=== PATIENT | male | born 1945 | race Caucasian/White ===

== ENCOUNTER 2024-11-06 10:34 | Inpatient (IN) ==
--- NOTE | 2024-10-06 10:36 | PAT Medication Instructions ---
Medication Instructions Date of Service October 06, 2024 Home Medications Vitamin B-12 1 tab PO QAM amitriptyline 25 mg tablet 25 mg PO HS apixaban 5 mg tablet (Eliquis) 5 mg PO BID aspirin 81 mg capsule 81 mg PO HS baclofen 10 mg tablet 10 mg PO DAILY PRN Pain ergocalciferol (vitamin D2) 1,250 mcg (50,000 unit) capsule (Vitamin D2) 1,250 mcg PO WK furosemide 20 mg tablet 20 mg PO QAM omeprazole 20 mg capsule,delayed release 20 mg PO HS oxycodone 10 mg tablet 10 mg PO BID PRN Pain rizatriptan 10 mg tablet (Maxalt) 0 mg PO .COMPLEX PRN prn rosuvastatin 20 mg tablet 20 mg PO QAM tamsulosin 0.4 mg capsule 0.4 mg PO HS topiramate 50 mg tablet (Topamax) 50 mg PO BID MEDICATION INSTRUCTIONS: ASK your prescriber and surgeon apixaban 5 mg tablet (Eliquis) 5 mg PO BID aspirin 81 mg capsule 81 mg PO HS DO NOT take the morning of surgery ergocalciferol (vitamin D2) 1,250 mcg (50,000 unit) capsule (Vitamin D2) 1,250 mcg PO WK furosemide 20 mg tablet 20 mg PO QAM Vitamin B-12 1 tab PO QAM Take morning of surgery With a small sip of water, OTHERWISE NOTHING TO EAT OR DRINK AFTER MIDNIGHT: topiramate 50 mg tablet (Topamax) 50 mg PO BID baclofen 10 mg tablet 10 mg PO DAILY PRN Pain oxycodone 10 mg tablet 10 mg PO BID PRN Pain rizatriptan 10 mg tablet (Maxalt) 0 mg PO .COMPLEX PRN prn rosuvastatin 20 mg tablet 20 mg PO QAM Take evening before surgery topiramate 50 mg tablet (Topamax) 50 mg PO BID omeprazole 20 mg capsule,delayed release 20 mg PO HS tamsulosin 0.4 mg capsule 0.4 mg PO HS amitriptyline 25 mg tablet 25 mg PO HS baclofen 10 mg tablet 10 mg PO DAILY PRN Pain oxycodone 10 mg tablet 10 mg PO BID PRN Pain rizatriptan 10 mg tablet (Maxalt) 0 mg PO .COMPLEX PRN prn Other Notes If you have any questions please call us at [phone] or [phone] or [phone] or [phone]
--- NOTE | 2024-10-12 13:07 | Anesthesiology Consultation ---
Date of Service October 12, 2024 Assessment & Plan (1) Encounter for pre-operative examination: Plan - awaiting surgeon ordered cardiology ([facility] 10/14/24) and medical clearances ([facility] 10/23/24). - anesthesia history: confusion/combativeness post-op related to PTSD especially if woken abruptly/startled. Patient requests waking him gently and giving him space, reminding him he is in the OR and just had surgery. - claustrophobia, patient requests keeping mask for oxygenation just above his face. - vasovagal syncope with IV placement/injections. - OR notified of above. - s/p right rotator cuff repair 08/2024 [facility]-patient denies any needed precautions overall/with positioning. Chart Review Chart Review: Pending: Refer to Additional Notes / Consult section and Patient seen in Pre Admission Testing Teaching & Discussion Pre-Anesthesia Teaching/Discussion Notes: Instructed NPO after midnight before surgery, except medications with 15 cc of water. Medication instructions provided according to the PAT guidelines. History Surgery Operation Date: 11/06/24 07:45 Proposed Procedures p L5-S1 Decompression and Fusion, Spinal Cord Monitoring - Frederick Mayberry, Height/Weight Height: 6 ft 5 in Weight: 107 kg Allergies Allergy/AdvReac Type Severity Reaction Status Date / Time naproxen Allergy Unknown Rash Verified 10/01/24 14:33 sacubitril [From Entresto] Allergy Unknown syncope Verified 10/01/24 14:38 valsartan [From Entresto] Allergy Unknown syncope Verified 10/01/24 14:38 Medications Home Medications Medication Instructions Recorded Confirmed Last Taken Vitamin B-12 1 tab PO QAM 10/01/24 10/01/24 Unknown amitriptyline 25 mg tablet 25 mg PO HS 10/01/24 10/01/24 Unknown apixaban 5 mg tablet (Eliquis) 5 mg PO BID 10/01/24 10/01/24 Unknown aspirin 81 mg capsule 81 mg PO HS 10/01/24 10/01/24 Unknown baclofen 10 mg tablet 10 mg PO DAILY PRN Pain 10/01/24 10/01/24 Unknown ergocalciferol (vitamin D2) 1,250 1,250 mcg PO WK 10/01/24 10/01/24 Unknown mcg (50,000 unit) capsule (Vitamin D2) furosemide 20 mg tablet 20 mg PO QAM 10/01/24 10/01/24 Unknown omeprazole 20 mg capsule,delayed 20 mg PO HS 10/01/24 10/01/24 Unknown release oxycodone 10 mg tablet 10 mg PO BID PRN Pain 10/01/24 10/01/24 Unknown rizatriptan 10 mg tablet (Maxalt) 0 mg PO .COMPLEX PRN prn 10/01/24 10/01/24 Unknown rosuvastatin 20 mg tablet 20 mg PO QAM 10/01/24 10/01/24 Unknown tamsulosin 0.4 mg capsule 0.4 mg PO HS 10/01/24 10/01/24 Unknown topiramate 50 mg tablet (Topamax) 50 mg PO BID 10/01/24 10/01/24 Unknown Past Medical History Medical History (Updated 10/12/24 @ 15:30 by Love Mo PA-C) Arthritis Atrial fibrillation on Eliquis daily-s/p ablation 2022- [facility] CAD (coronary artery disease) mild non-obstructive Claustrophobia does better with mask just slightly above face Congestive heart failure EF 55-60% Dyslipidemia History of COVID-19 (~04/2024) symptoms resolved Hypertension controlled, stable per pt Migraines Peripheral neuropathy feet PTSD (post-traumatic stress disorder) needs space/gently woken up from surgery Vasovagal syncope with IV placement/injections-states no issues with blood draw Vertigo chronic Patient denies h/o stroke, seizures, heart attack, DM, blood clots/DVTs or blood transfusions. Exercise / Class Metabolic Activity II 4-5 Yardwork/Stairs/Walk up hill (denies chest discomfort or shortness of breath with one flight of stairs) Past Surgical History Surgical History History of cardiac radiofrequency ablation (~2022) History of shoulder surgery right 08/11/24- rotator cuff repair, [facility] Hx of cardiac catheterization (~2021) no stents [facility] [place] Hx of cholecystectomy Hx of colonoscopy Hx of total knee replacement right Past Anesthesia History No Family Hx of Anesthesia Complications and Other (confusion/combativeness waking due to PTSD-states needs woken up gently; sore throat with previous intubations) History of PONV No Hx of PONV and No Hx of Motion Sickness Social History Smoking Status: Never smoker Do You Dip or Chew Tobacco: No Hx Alcohol Use: Yes alcohol intake frequency: a few times a week Hx Substance Use: No substance use type: does not use Review of Systems Patient denies chest pain, shortness of breath, dyspnea on exertion, snoring, witnessed apneas, reflux, fever, chills, cough, wheezing, or palpitations. Physical Exam Vital Signs Vitals BP 161/94 (Pt notes stress/anxiety) P 85 TEMP 98.5 SP02 94% on RA RESP 19 Physical Patient resting comfortably in chair in no acute distress, alert and oriented, responding appropriately throughout visit Full cervical extension range of motion without pain TMD 3.5 finger breadths Mallampati Score 3 Dentition: upper plate, implant and cap/crown; denies chipped or loose teeth, or bridges Lungs: normal respiratory effort. Good air movement, clear throughout to auscultation, no adventitious breath sounds Cardiac: regular rate and rhythm, no murmurs noted Carotid arteries: negative bruit bilat Lab Results Anesthesia Preop Results Results Anesthesia Widget: WBC 5.15 K/ul (4.8-10.8) 10/12/24 Hgb 15.0 g/dl (14.0-18.0) 10/12/24 Hct 44.2 % (42.0-52.0) 10/12/24 Plt 183 K/uL (130-400) 10/12/24 Na 139 mmol/L (136-145) 10/12/24 K 3.9 mmol/L (3.5-5.1) 10/12/24 Cl 107 mmol/L (98-107) 10/12/24 CO2 25 mmol/L (21-32) 10/12/24 BUN 10 mg/dl (6-23) 10/12/24 Creat 0.89 mg/dl (0.6-1.4) 10/12/24 Glucose Level 103 mg/dl (70-99(Fasting)) H 10/12/24 PT 10.8 Seconds (9.0-12.0) 10/12/24 PTT 29 Seconds (21-31) 10/12/24 INR 1.0 (0.9-1.1) 10/12/24 Urine Color Yellow 10/12/24 Urine Appearance Clear (Clear) 10/12/24 Urine pH 5.0 (4.5-7.5) 10/12/24 Urine Specific [place] 1.009 (1.000-1.030) 10/12/24 Urine Protein Negative (Negative) 10/12/24 Urine Glucose (UA) Negative (Negative) 10/12/24 Urine Ketones Negative (Negative) 10/12/24 Urine Blood Negative (Negative) 10/12/24 Urine Nitrite Negative (Negative) 10/12/24 Urine Bilirubin Negative (Negative) 10/12/24 Urine Urobilinogen Negative (Negative) 10/12/24 Urine Leukocyte Esterase Negative (Negative) 10/12/24 Blood Type AB Negative 10/12/24 Antibody Screen NEGATIVE 10/12/24 Testing Electrocardiogram Date: 10/12/24 NSR, rate 76 bpm PACs Left axis deviation Incomplete RBBB Nonspecific T wave abnormality Chest X-Ray Date: 10/12/24 No acute cardiopulmonary findings. Echocardiogram Date: 10/02/23 EF 60% Borderline cLVH Mildly dilated LA Mild mitral regurgitation Mild aortic insufficiency Mild tricuspid regurgitation Cardiac Catheterization Date: 12/27/21 Left main: mild luminal irregularities up to 10% LAD: 20% luminal changes along the length of the LAD and diagonal vessel Cx: 30% disease in proximal vessel in the AV groove RCA: 40% proximal disease Mild nonobstructive CAD
[~2024-11-06 10:34] MED LIST: ALBUMIN HUMAN 5% 12.5 GM/250 ML VIAL IV ONE; CeleBREX 200 MG CAP PO SCH; GLYCOPYRROLATE 0.2 MG/ML VIAL ONE; KETAMINE HCL 10MG/ML SYR ONE; fentaNYL citrate PF 100 MCG/2 ML VIAL ONE
[2024-11-06] MEDS: ACETAMINOPHEN 500 MG TAB PO SCH (10:55)
[2024-11-06] MEDS: GABAPENTIN 300 MG CAP PO SCH (10:55)
[2024-11-06] MEDS: LR 15ML/HR IV SCH (10:55)
[2024-11-06] MEDS: LR 60ML/HR IV SCH (10:56)
[2024-11-06] MEDS ORDERED: PROMETHAZINE HCL 6.25 MG in SODIUM CHLORIDE 0.9% 50 ML IV PRN (11:23)
[2024-11-06] MEDS ORDERED: ePHEDrine sulfate 50 MG/ML AMP IV PRN (11:23)
[2024-11-06] MEDS ORDERED: ATROPINE SULFATE 0.1 MG/ML 10ML SYR IV PRN (11:23)
--- NOTE | 2024-11-06 12:26 | History & Physical Bridge Note ---
Date of Service November 06, 2024 History & Physical Bridge Note I have examined the patient, reviewed the History & Physical and in the interval since the performance of the History & Physical I have noted the following changes of clinical significance: no changes noted
--- NOTE | 2024-11-06 12:29 | History & Physical Report ---
Date of Service November 06, 2024 Assessment & Plan (1) Multilevel lumbosacral spondylosis with radiculopathy: Plan: L2-S1 decompression and fusion History of Present Illness Chief Complaint: Back and bilateral leg pain Primary Care Provider: NO PCP This is a 79-year-old male who presents with chronic persistent back and leg pain after failing course of nonoperative care is here for surgical intervention. Allergies Allergy/AdvReac Type Severity Reaction Status Date / Time naproxen Allergy Unknown Rash Verified 11/06/24 10:39 sacubitril [From Entresto] Allergy Unknown syncope Verified 11/06/24 10:39 valsartan [From Entresto] Allergy Unknown syncope Verified 11/06/24 10:39 Home Medications Medication Instructions Recorded Confirmed Type Vitamin B-12 1 tab PO QAM 10/01/24 11/06/24 History amitriptyline 25 mg tablet 25 mg PO HS 10/01/24 11/06/24 History apixaban 5 mg tablet (Eliquis) 5 mg PO BID 10/01/24 11/06/24 History aspirin 81 mg capsule 81 mg PO HS 10/01/24 11/06/24 History baclofen 10 mg tablet 10 mg PO DAILY PRN Pain 10/01/24 11/06/24 History ergocalciferol (vitamin D2) 1,250 1,250 mcg PO WK 10/01/24 11/06/24 History mcg (50,000 unit) capsule (Vitamin D2) furosemide 20 mg tablet 20 mg PO QAM 10/01/24 11/06/24 History omeprazole 20 mg capsule,delayed 20 mg PO HS 10/01/24 11/06/24 History release oxycodone 10 mg tablet 10 mg PO BID PRN Pain 10/01/24 11/06/24 History rizatriptan 10 mg tablet (Maxalt) 0 mg PO .COMPLEX PRN prn 10/01/24 11/06/24 History rosuvastatin 20 mg tablet 20 mg PO QAM 10/01/24 11/06/24 History tamsulosin 0.4 mg capsule 0.4 mg PO HS 10/01/24 11/06/24 History topiramate 50 mg tablet (Topamax) 50 mg PO BID 10/01/24 11/06/24 History Past Med/Surg History Problem List (Updated 11/06/24 @ 12:29 by Frederick Mayberry DO) Multilevel lumbosacral spondylosis with radiculopathy Encounter for pre-operative examination Medical History (Updated 11/06/24 @ 12:29 by Frederick Mayberry DO) Hypertension controlled, stable per pt Claustrophobia does better with mask just slightly above face Vasovagal syncope with IV placement/injections-states no issues with blood draw Vertigo chronic CAD (coronary artery disease) mild non-obstructive Congestive heart failure EF 55-60% Arthritis Dyslipidemia History of COVID-19 (~04/2024) symptoms resolved PTSD (post-traumatic stress disorder) needs space/gently woken up from surgery Peripheral neuropathy feet Migraines Atrial fibrillation on Eliquis daily-s/p ablation 2022- [facility] [place]- Shahriar Ramirez Surgical History History of shoulder surgery right 08/11/24- rotator cuff repair, [place] [facility] Hx of cardiac catheterization (~2021) no stents [facility] [place] History of cardiac radiofrequency ablation (~2022) Hx of total knee replacement right Hx of colonoscopy Hx of cholecystectomy Social History Smoking Status: Never smoker Second Hand Exposure: No; Do You Dip or Chew Tobacco: No; Tobacco Cessation Education Requested by Patient: No Hx Alcohol Use: Yes Hx Substance Use: No Preferred Language: [place]ican Communication Ability: Effective Locker Room Manager Required: No Beliefs That Will Affect Care: None Current Living Situation: Spouse Other Information That Helps Us Care for You: No Feels Safe at Home: Yes Safety Concerns: Feels Safe At This Time Assistive Devices: Denture - Upper, Glasses and Hearing Aid - Bilateral Assistive Devices Comment: UPPER PARTIAL Physical Exam Physical Exam: Patient is alert and oriented Heart regular rhythm lungs clear Results & Data Results & Data Vital Signs (Past 12 Hours) Vital Signs Temp Pulse Resp BP Pulse Ox O2 Del Method 11/06/24 10:44 36.9 C 82 20 162/91 H 97 Room Air
[2024-11-06] MEDS ORDERED: MIDAZOLAM HCL 1 MG/ML 2ML VIAL ONE (12:53)
[2024-11-06] MEDS: ceFAZolin 2000MG 2,000 MG/15 ML SYR IV SCH ×2 (13:02→21:21)
[2024-11-06] MEDS ORDERED: HYDROmorphone INJ 2 MG/ML SYR/VIAL ONE (13:37)
[2024-11-06] MEDS: BUPIVACAINE/EPINEPHRINE 0.25% 1:200,000 30 ML VIAL ONE (13:44)
[2024-11-06] MEDS: ceFAZolin 330 MG/ML 1 GM VIAL ONE (13:44)
[2024-11-06] MEDS ORDERED: PROPOFOL IV EMULSION 10 MG/ML 20 ML VIAL IV ONE (14:13)
[2024-11-06] MEDS ORDERED: LIDOCAINE 2% 2 ML VIAL/AMP(20MG/ML) INFIL ONE (14:13)
[2024-11-06] MEDS ORDERED: ROCURONIUM BROMIDE 10 MG/ML 5 ML VIAL IV ONE (14:13)
[2024-11-06] MEDS ORDERED: DEXAMETHASONE SOD INJ 4 MG/ML VIAL ONE (14:13)
[2024-11-06] MEDS ORDERED: ONDANSETRON INJ 2 MG/ML 2 ML VIAL ONE (14:13)
[2024-11-06] MEDS ORDERED: ePHEDrine sulfate 50 MG/5 ML SYR ONE (14:38)
[2024-11-06] MEDS: FLOSEAL HEMOSTATIC MATRIX 10ML TOP ONE (15:15)
[2024-11-06] MEDS ORDERED: SUGAMMADEX SODIUM 200 MG/2 ML VIAL IV ONE (15:20)
--- NOTE | 2024-11-06 15:30 | Operative Report ---
Post Operative Report Pre & Post Diagnosis Operation Date: 11/06/24 11:55 Pre-Op Diagnosis: #1 multilevel lumbar sacral spondylosis with radiculopathy #2 lumbar spinal stenosis Post-Op Diagnosis: Same I identified the patient and participated in the time-out.: Yes Procedure Operation Date: 11/06/24 11:55 Actual Procedures #1 lumbar decompression with bilateral mucosectomy and foraminotomies L2-L3, L3- L4, L4-5 and L5-S1. #2 posterior spinal fusion L2-S1. #3 placement posterior segmental instrumentation L2-S1 using Dewitt. #4 interbody fusion L5-S1. #[address] Place of Spiriva 10 x 26 mm x 2 to L5-S1. #6 placement locally harvested morselized autograft posterior gutters. #7 placement of infuse collagen sponge combined with core os in the posterior lateral gutters and os design in the interbody space. #8 placement of versa wrap over the exposed dura. Surgeon Frederick Mayberry, Movement Assembler Lonny Aguilar Estimated Blood Loss 500 Findings Consistent with Post-Op Diagnosis Specimens None Indications This is a 79-year-old male who presents manage diagnosis after failing course of nonoperative care is here for surgical invention. Description of Procedure Patient was met with identified informed consent obtained. Patient was then taken to the operative suite underwent patient placed in a prone position on the Vladislav table on top of the Manjinder frame. All bony promises well-padded eyes inspected to ensure no external pressure placed upon them. This point the lumb ar spine was prepped and draped in normal sterile fashion. Sharp dissection with the assistance of Bovie cautery from down to and exposing the lamina and transverse processes of L2-L3 L4-5 and the sacral ala bilaterally. From [place] cephalad fashion complete laminectomy of L5 L4 L3 and L2 was performed including bilateral medial facetectomies and foraminotomies addressing severe neural compression. Pedicle screws were then placed at L2 L3-L4-L5 and S1 levels bilaterally with assistance of fluoroscopy and appropriate sized rods placed. Bilateral transforaminal approach and right a discectomy of L5-S1 was performed and placed according to subcortical bleeding bone and a 10 x 26 mm spiral cage filled with loss + bone graft tapped in position. Then received to the left transforaminal region at L5-S1. Again discectomy performed. Endplates coated to subcortical bone and a second 10 x 26 mm spiral cage filled with loss design bone graft tapped in position. The rods were then locked in final position bilaterally. The transverse processes of L2 L3-L4-L5 and sacral ala bridges of cortical bleeding bone. Infuse collagen sponge combined with core os and local autograft placed in the posterior gutters. 15 round BRIANNA drain inserted. First wrap placed over the exposed dura. Incision was then closed with 1 Vicryl the fascia 2-0 Vicryl subcutaneously and 4 Monocryl for final skin closure. Steri- Strips sterile dressing placed. Patient awakened taken to PACU stable condition. Please note spinal cord monitoring was utilized at the procedure no changes noted. Lastly Lonny Aguilar was present at the entire procedure informed patient positioning complex portion of the surgery and final skin closure. I attest to the content of the Intraoperative Record and any orders documented therein. Any exceptions are noted below.
--- NOTE | 2024-11-06 15:39 | Fluoroscopy Report ---
FL lumbar spine 2-3V CLINICAL HISTORY: L2-S1 DECOMP/FUSION COMPARISON STUDY: None FLUOROSCOPY TIME: 31.5 seconds FLUOROSCOPY IMAGES: 3 EXPOSURE DOSE: 19.89 mGy FINDINGS: Multilevel interbody cassie and screw fusion hardware of the lumbar spine with single level di scectomy. Exact number is not definitive based on magnification. Note that the images were submitted following completion of the surgery. No unexpected opaque foreign bodies. IMPRESSION: Fluoroscopic assistance as above. ACT 112: Negative or not required by law. Electronically signed by: Jack Fuchs M.D. 11/06/2024 3:38 PM
[2024-11-06] MEDS: HYDROmorphone INJ 2 MG/ML SYR/VIAL IV PRN (16:06)
--- NOTE | 2024-11-06 16:51 | Anesthesiology Progress Note ---
Date of Service November 06, 2024 Anesthesia Post Procedure Vital Signs Vital Signs: Temp Pulse Pulse Resp BP Pulse Ox O2 Del Method 11/06/24 16:45 36.4 C L 79 15 132/79 94 Nasal Cannula 11/06/24 16:35 78 15 119/69 94 Nasal Cannula 11/06/24 16:25 77 15 103/73 94 Nasal Cannula 11/06/24 16:15 73 17 133/74 96 Nasal Cannula 11/06/24 16:05 76 17 124/68 95 Nasal Cannula 11/06/24 15:55 36.4 C L 77 17 106/71 97 Nasal Cannula 11/06/24 10:44 36.9 C 82 20 162/91 H 97 Room Air O2 Flow Rate 11/06/24 16:45 4 11/06/24 16:35 4 11/06/24 16:25 4 11/06/24 16:15 4 11/06/24 16:05 4 11/06/24 15:55 4 11/06/24 10:44 Transfer of Care Handoff Completed per policy Notes Mental Status: alert / awake / arousable Patient Amnestic to Procedure: Yes Nausea / Vomiting: adequately controlled Pain: adequately controlled Airway Patency, RR, SpO2: stable & adequate BP & HR: stable & adequate Hydration State: stable & adequate Anesthetic Complications: no major complications apparent and Pt Satisfied with anesthetic care
[2024-11-06] MEDS ORDERED: METOCLOPRAMIDE HCL INJ 5 MG/ML 2 ML VIAL IV PRN (17:22)
[2024-11-06] MEDS ORDERED: DO NOT ADMINISTER FLU VACCINE PRN (17:22)
[2024-11-06] MEDS ORDERED: HYDROmorphone INJ 0.5 MG/0.5 ML SYR IV PRN (17:22)
[2024-11-06] MEDS ORDERED: BACLOFEN 10 MG TAB PO PRN (17:22)
[2024-11-06] MEDS ORDERED: SOD PHOSPHATE/SOD BIPHOSPHATE ENEMA 132 ML BTL PR PRN (17:22)
[2024-11-06] MEDS ORDERED: FAMOTIDINE 20 MG TAB PO PRN (17:22)
[2024-11-06] MEDS ORDERED: ACETAMINOPHEN 1,000 MG/100 ML VIAL IV PRN (17:22)
[2024-11-06] MEDS ORDERED: diphenhydrAMINE Capsule 25 MG CAP PO PRN (17:22)
[2024-11-06] MEDS ORDERED: ONDANSETRON 4 MG OD TAB PO PRN (17:22)
[2024-11-06] MEDS ORDERED: PROMETHAZINE 12.5 MG/50.5 ML BAG IV PRN (17:22)
[2024-11-06] MEDS ORDERED: RIZATRIPTAN BENZOATE 10 MG TAB PO PRN (17:22)
[2024-11-06] MEDS ORDERED: bisacodyL 10 MG SUPP PR PRN (17:22)
[2024-11-06] MEDS ORDERED: LORazepam 0.5 MG TAB PO PRN (17:22)
[2024-11-06] MEDS ORDERED: NALOXONE HCL 0.4 MG/1 ML VIAL/CARP IV PRN (17:22)
[2024-11-06] MEDS ORDERED: DO NOT ADMINISTER PNEUMOCOCCAL VACCINE PRN (17:22)
[2024-11-06] MEDS ORDERED: LORazepam 2 MG/1 ML VIAL IV PRN (17:22)
[2024-11-06] MEDS ORDERED: ALUMINUM/MAGNESIUM SUSP 30 ML UDC PO PRN (17:22)
[2024-11-06] MEDS ORDERED: ONDANSETRON INJ 2 MG/ML 2 ML VIAL IV PRN (17:22)
[2024-11-06] MEDS ORDERED: hydrOXYzine HCl 25 MG TAB PO PRN (17:22)
[2024-11-06] MEDS: ALLERGY Noted to ORDERED Medication SCH (18:26)
--- OUTSIDE RECORDS SUMMARY | 2024-11-06 19:48 | External Medical Summary | Summary of Care ---
Author Name Unknown Organization [facility] Address [address] [place] [address] Phone [phone] Care Team Providers Care International Student Advisor Name Role Phone Shahriar Renner PA-C Primary Care Provid er Reason for Referral * Evaluate & Treat - Unlimited Visits (Within 10 days (routine)) - Authorized Specialty Diagnoses / Procedures Referred By Karolina nunez Referred To Contact Ophthalmology Diagnoses Macular pucker, right eye [facility] Renner [facility] [id number] [facility] [id number] Referral ID Status Reason Start Date Expiration Date Visits Requested Visits Authorized [id number] Authorized Specialty Services Required 4 08/27/[phone] Question Answer Referral Priority Within 10 days (routine) Where should this appointment be scheduled? [facility] Referring for: Ophthalmology Conditions Ophthalmology Conditions Other Ophthalmology (comment) Comments Puckering of macula, rt eye Encounter Details Date Type Department Care Team (Late st Contact Info) Description 06/08/2024 Orders Only Access Center, [place] [facility] [address] [place] [address] Ext *DO NOT REMOVE THIS DEPARTMENT* [place] [id number] Request, External Referral Macular pucker, right eye* Allergies Active Allergy Reactions Criticality Noted Date Comments Sacubitril-Valsartan 06/07/2023 Naproxen 04/20/2015 documented as of this encounter (statuses as of 06/08/2024) Medications Medication Sig Dispensed Refills Start Date End Date Status Cyanocobalamin (VITAMIN B-12) 2500 MCG Sublingual Tablet 1tab daily Act yumiko amitriptyline (ELAVIL) 25 MG Tablet 1 tab in the evening Active Rizatriptan Benzoate (MAXALT) 10 MG Tablet 1 Tablet as needed. 1 tab daily for migraines Active Oxycodone-Acetaminoph en (PERCOCET) 10-325 MG per tablet As needed Active baclofen (LIORESAL) 10 MG Tablet Take 1 Tablet by mouth as needed. Active ARTIFICIAL TEARS 0.1-0.3 % ophthalmic solution Instill 1 Drop into both eyes daily. Active hydroCHLOROthiazide (HYDRODIURIL) 25 MG Tablet daily. 1/2 daily 06/15/2019 Active NARCAN 4 MG/0.1ML LIQD 07/01/2019 Active omeprazole (PRILOSEC) 20 MG CPDR 05/23/2019 Active ondansetron (ZOFRAN) 4 MG Tablet as needed. 0 06/19/2019 Active topiramate (TOPAMAX) 25 MG TABS 2 times a day. 0 06/19/2019 Active Ergocalciferol 1.25 MG (16294 UT) Oral Capsule (VITAMIN D2(DRISDOL)) Take 1 Capsule by mouth once a week. Active Eliquis 5 MG Oral Tablet 04/20/2022 Active dilTIAZem HCl ER Beads 120 MG Oral Capsule Extended Release 24 Hour 2 times a day . 03/20/2022 Acti ve Furosemide 20 MG Oral Tablet (Lasix) 04/25/2022 Active Rosuvastatin Calcium 40 MG Oral Tablet (Crestor) 05/03/2022 Active Tamsulosin HCl 0.4 MG Oral Capsule (Flomax) 04/25/2022 Act yumiko Aspirin 81 MG Oral Capsule Take by mouth . Active Sildenafil Citrate 100 MG Oral Tablet 1 Tablet. 11/14/2022 Active documented as of this encounter (statuses as of 06/08/2024) Active Problems Problem Noted Date Diagnosed Date Epiretinal membrane (ERM) of left eye 06/23/2020 Retinal detachment with retinal defect, right Vitreous degeneration, left 04/21/2015 Retinal edema 04/21/2015 documented as of this encounter (statuses as of 06/08/2024) Immunizations Name Administration Dates Next Due Seasonal Influenza Virus Vac cine, Unspecified Formulation 04/20/2020 documented as of this encounter Social History Tobacco Use Types Packs/Day Years Used Date Smoking Tobacco: Never Smokeless Tobacco: Never Alcohol Use Standard Drinks/Week Comments Yes 0 (1 standard drink = 0.6 oz pur e alcohol) 2-3 beers daily Utilities Answer Date Recorded Do you have trouble paying y our heating, water, or electric bill? (Adult - for ages 18 years and over) Not on file 01/21/2024 Is your family able to pay t he heat, water, or electric bill? (Household - for ages 0-17 years) Not on file 01/21/2024 Does your family have access to good internet? (Household - for ages 0-17 years) Not on file 01/21/2024 Social Connections Answer Date Recorded How often do you feel lonely or isolated from those around you? (Adult - for ages 18 years and over) Not on file 01/21/2024 Sex and Gender Information Value Date Recorded Sex Assigned at Not on file Gender Identity Not on file Sexual Orientation Not on file Job Start Date Occupation Industry Not on file Not on file Not on file documented as of this encounter Plan of Treatment Upcoming Encounters Date Type Department Care Team (Late st Contact Info) Description 08/27/2024 1:00 PM EST Office Visit Ophthalmology, [facility] [address] [place] [address] [place], [address] [place] [address] Roly Nurse Ophthalmology [address] [place] [address] Roly Lead Business Systems Analyst [address] [place] [address] Scheduled Referrals Name Type Priority Associated Diagnoses Orde r Schedule ADULT/PEDS OPHTHALMOLOGY/OPTOM ETRY REFERRAL OP Referral Within 10 days (routine) Macular pucker, right eye Ordered: 06/08/2024 Health Maintenance Due Date Last Done Comments Depression Screening 1957 Hepatitis C Screening 1963 DTap/Tdap Vaccines (1 - Tdap) 1964 Pneumococcal Vaccine: 65+ Years (2 of 2 - PPSV23 or PCV20) 08/11/2016 08/11/2015 Zoster Vaccines (3 of 3) 05/26/2019 03/31/2019, 01/03 COVID-19 Vaccine (1 - 2023- season) 2024 Influenza Vaccine (FLU shot) (#1) 2024 04/20/2020, 05/06/2018, 05/29/2017, Additional history exists HPV (Gardasil) Vaccine Aged Out No lo nger eligible based on patient's age to complete this topic Hepatitis B Vaccine Aged Out No longe r eligible based on patient's age to complete this topic MENINGOCOCCAL (MENACTRA/MENVEO) Aged Out No longer eligible based on patient's age to complete this topic documented as of this encounter Medical Devices Not on filedocumented as of this encounter Visit Diagnoses Diagnosis Macular pucker, right eye- Primary Macular puckering of retina documented in this encounter Care Teams International Student Advisor Relationship Specialty Start Date End Date Shahriar Renner PA-C [address] [facility] [place] [address] PCP - General Physician Machine Group Leader 04/01/24 documented as of this encounter
--- OUTSIDE RECORDS SUMMARY | 2024-11-06 19:48 | External Medical Summary | Summary of Care ---
Author Name Unknown Organization [facility] Address [address] [facility] [place] [address] Phone [phone] Care Team Providers Care Saw Repairer Name Role Phone Shahriar Renner PA-C Primary Care Provid er Reason for Visit * Reason Comments Follow Up 1.2 Year follow up f or retinal detachment w/retinal defect OD, s/p repair 2008, retinal edema OD, ERM OS and vitreous degeneration OS. * Evaluate & Treat - Unlimited Visits (Within 10 days (routine)) - Authorized Specialty Diagnoses / Procedures Referred By Karolina nunez Referred To Contact Ophthalmology Diagnoses Macular pucker, right eye [facility] Ren[facility] [address] [facility] [place] [address] Phone: tel: fax: Referral ID Status Reason Start Date Expiration Date Visits Requested Visits Authorized [id number] Authorized Specialty Services Required 4 08/27/2025 [id number] Encounter Details Date Type Department Care Team (Late st Contact Info) Description 08/27/2024 1:00 PM EST Office Visit Ophthalmology, [facility] [address] [place] [address] Melchor Hassan DO [address] [place] [address] Roly Nurse Ophthalmology [address] [place] [address] Royl Able Bodied Seaman [address] [place] [address] Retinal detachment with retinal defect, right*; Retinal edema; Epiretinal membrane (ERM) of left eye; Vitreous degeneration, left Allergies Active Allergy Reactions Criticality Noted Date Comments Sacubitril-Valsartan 06/07/2023 Naproxen 04/20/2015 documented as of this encounter (statuses as of 08/27/2024) Medications Cyanocobalamin (VITAMIN B-12) 2500 MCG Sublingual Tablet 1tab daily Active amitriptyline (ELAVIL) 25 MG Tablet 1 tab in the evening Active Rizatriptan Benzoate (MAXALT) 10 MG Tablet 1 Tablet as needed. 1 tab daily for migraines Active Oxycodone-Aceta minophen (PERCOCET) 10-325 MG per tablet As needed Active baclofen (LIORESAL) 10 MG Tablet Take 1 Tablet by mouth as needed. Active ARTIFICIAL TEARS 0.1-0.3 % ophthalmic solution Instill 1 Drop into both eyes in the morning. Active hydroCHLOROthia zide (HYDRODIURIL) 25 MG Tablet daily. 1/2 daily 9 Active NARCAN 4 MG/0.1ML LIQD 9 Active omeprazole (PRILOSEC) 20 MG CPDR 9 Active ondansetron (ZOFRAN) 4 MG Tablet as needed. 0 9 Active topiramate (TOPAMAX) 25 MG TABS 2 times a day. 0 9 Active Ergocalciferol 1.25 MG (48230 UT) Oral Capsule (VITAMIN D2(DRISDOL)) Take 1 Capsule by mouth once a week. Active Eliquis 5 MG Oral Tablet 2 Active dilTIAZem HCl ER Beads 120 MG Oral Capsule Extended Release 24 Hour 2 times a day . 2 Active Furosemide 20 MG Oral Tablet (Lasix) 2 Active Rosuvastatin Calcium 40 MG Oral Tablet (Crestor) 2 Active Tamsulosin HCl 0.4 MG Oral Capsule (Flomax) 2 Active Aspirin 81 MG Oral Capsule Take by mouth . Active Sildenafil Citrate 100 MG Oral Tablet 1 Tablet. 3 Active documented as of this encounter (statuses as of 08/27/2024) Active Problems Problem Noted Date Diagnosed Date Epiretinal membrane (ERM) of left eye 06/23/2020 Retinal detachment with retinal defect, right Vitreous degeneration, left 04/21/2015 Retinal edema 04/21/2015 documented as of this encounter (statuses as of 08/27/2024) Immunizations Name Administration Dates Next Due Influenza, Whole Virus 07/23/2001 Pneumococcal Conjugate Vacc, 13 Valent (Prevnar) 08/11/2015 RSV Vac., Recomb, Adjuvant, PF,0.5 Ml (Arexvy) 06/05/2023 Seasonal Influenza Vac., MDV , IM, 0.5 mL (Fluzone) 05/06/2018,05/29/2017,04/28/2016,2014 Seasonal Influenza Virus Vac cine, Unspecified Formulation 04/20/2020 Seasonal Influenza, Trivalen t, (IIV3), PF, (Fluzone) 06/25/2024 TDAP (age 10 and older)(Boostrix) 11/06/2013 Varicella Zoster Vaccine (Adult) 01/13/2009 Zoster Vaccine Recombinant (Shingrix) 03/31/2019 documented as of this encounter Social History [...] Recorded Sex Assigned at Not on file Legal Sex Male 6:33 AM EST Gender Identity Not on file Sexual Orientation Not on file Occupation Industry Job Start Date Job End Date [employer]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 06/07/2023 (in office), Visit date not found (telemedicine) Has your medical history changed since your last office visit? Yes, I had shoulder surgery to the right shoulder on 08/11/24. He currently states "I just broke my eye glasses and am wearing an older pair. I have noticed that when I read or even looking out at a distance my vision blurs up until I blink a few times then it comes into focus." Are you diabetic? NO. Are you being treated for macular degeneration? NO. Current Ophthalmic Medications: Artificial tears in both eyes as needed. Nursing notes reviewed. Base Eye Exam Visual Acuity (Snellen - Linear) Right Left Dist cc 20/80-1+2 20/20-1 Dist ph cc 20/70 Correction: Glasses Tonometry (Tonopen, 1:06 PM) Right Left Pressure 16 16 Pupils Dark React APD Right 2 Minimal None Left 2 Minimal None Visual Hill (Counting fingers) Right Left Full Restrictions Partial outer superior temporal, inferior nasal deficiencies Extraocular Movement Right Left Full Full Neuro/Psych Oriented x3: Yes Mood/Affect: Normal Dilation Both eyes: 0.5% Proparacaine, 1.0% Mydriacyl, 2.5% Phenylephrine @ 1:05 PM Patient cautioned that effects of dilation may last 2-7 hours dependant upon individual reaction. It was discussed that driving while dilated is not recommended. Slit Lamp and Fundus Exam External Exam Right Left External Normal Normal Slit Lamp Exam Right Left Lids/Lashes Normal Normal Conjunctiva/Sclera White and quiet White and quiet Cornea Clear Clear Anterior Chamber Deep and quiet Deep and quiet Iris Dilated, normal Dilated, normal, TI defect infero temporal Lens Sulcus IOL superior edge of the optic visible through dilated pupil, open capsule Posterior chamber intraocular lens, clear capsule Anterior Vitreous Vitrectomized and clear Posterior vitreous detachment, Vines ring and vitreous condensation with haze to the posterior hyaloid. Fundus Exam Right Left Disc Normal Normal C/D Ratio 0.5 0.3 Macula No Central edema. No epiretinal membrane. Glistening from fine ERM superior. No edema. Vessels Tortuous. Normal Periphery Stable detachment repair with healed retinopexy superior and temporal. No recurrent detachment. No hole, tear or detachment. Pigmentary changes temporal. OCT: OD: central thickness 363 microns. Scan very similar to the previous from 06/07/2023. Stable reduction in central edema. No Epiretinal membrane. Postsurgical appearance. OS: central thickness 306 microns. Scan very similar to the previous from 06/07/2023. No edema. Very fine Epiretinal membrane superior as before. Today's imaging was reviewed with the patient. DIAGNOSIS: (H33.001) Retinal detachment with retinal defect, right, s/p repair (H35.81) Retinal edema (H35.372) Epiretinal membrane (ERM) of left eye (H43.812) Vitreous degeneration, left COMMENTS: Comments today are very similar to our last visit 1 year ago, 06/07/2023 OD: The retinal exam in the right eye demonstrates mild residual central edema on OCT. Subtle decrease in the residual central edema. Vision is stable. The peripheral exam is stable with respect to the retinal detachment repair. OS: Evaluation of the left eye is entirely stable as well. Stable macula and periphery. The posterior capsule remains clear. There is a very fine epiretinal membrane noted clinically and on OCT. Thisis visually insignificant. Multiple floaters in vitreous condensations secondary to vitreous degeneration. I will continue to monitor on an annual basis. Mr. Plaza understands I can evaluate sooner if there is worsening of vision in the interval. FOLLOW UP: Follow Up: Return in about 1 year (around 08/27/2025) for Dilate OU, OCT OU. | For: Dilate OU, OCT OU Melchor Hassan D.O. 08/27/2024 1:33 PM Ophthalmology, [place] [address] [address] [place] [address] documented in this encounter Nursing Notes * Liz Liu COA - 08/27/2024 12:56 PM EST Layo Plaza is a 78 year old male who presents for Chief Complaint Patient presents with Follow Up 1.2 Year follow up for retinal detachment w/retinal defect OD, s/p repair 2008, retinal edema OD, ERM OS and vitreous degeneration OS. 06/07/2023 (in office), Visit date not found (telemedicine) Has your medical history changed since your last office visit? Yes, I had shoulder surgery to the right shoulder on 08/11/24. He currently states "I just broke my eye glasses and am wearing an older pair. I have noticed that when I read or even looking out at a distance my vision blurs up until I blink a few times then it comes into focus." Are you diabetic? NO. Are you being treated for macular degeneration? NO. Current Ophthalmic Medications: Artificial tears in both eyes as needed. Vision, IOP, confrontation hill, motility, pupil check and dilation per physician protocol can befound on the Ophth exam. * Beena Vaughan TECH - 08/27/2024 12:49 PM EST OCT image(s) of both eyes acquired and filed/scanned into chart. documented in this encounter Plan of Treatment Scheduled Referrals Name Type Priority Associated Diagnoses Orde r Schedule ADULT/PEDS OPHTHALMOLOGY/OPTOM ETRY REFERRAL OP Referral Within 10 days (routine) Macular pucker, right eye Ordered: 06/08/2024 Health Maintenance Due Date Last Done Comments Depression Screening 1957 Hepatitis C Screening 1963 Pneumococcal Vaccine: 50+ Years (2 of 2 - PPSV23) 08/11/2016 08/11/2015 Zoster Vaccines (3 of 3) 05/26/2019 03/31/2019, 01/03 DTap/Tdap Vaccines (2 - Td or Tdap) 11/07/2023 11/06/2013 COVID-19 Vaccine ( season) 2024 05/08/2023 Influenza Vaccine (FLU shot) Completed , 04/20/2020, 05/06/2018, Additional history exists HPV (Gardasil) Vaccine Aged [...] as of this encounter Visit Diagnoses Diagnosis Retinal detachment with retinal defect, right- Primary Retinal edema Epiretinal membrane (ERM) of left eye Vitreous degeneration, left documented in this encounter Care Teams Saw Repairer Relationship Specialty Start Date End Date Shahriar Renner PA-C [address] [facility] [place] [address] PCP - General Physician Cashier Payments Received 04/01/24 documented as of this encounter
--- NOTE | 2024-11-06 20:06 | Consultation ---
Date of Consultation November 06, 2024 Assessment & Plan (1) Status post lumbar surgery: (2) Multilevel lumbosacral spondylosis with radiculopathy: Post op day# 0 S/P decompression and fusion L2-S1 by Dr Shawanda MAYS#[id number] Pain management per ortho Wound management per ortho PT/OT as appropriate DVT prophylaxis per ortho Incentive spirometry Monitor H&H for acute blood loss anemia; pre-op Hgb: 15 (3) PAF (paroxysmal atrial fibrillation): anticoagulated on Eliquis S/P ablation Currently auscultate regular rhythm Eliquis currently on hold given back surgery, resume as able per ortho spine (4) Dyslipidemia: (5) CAD (coronary artery disease): Mild nonobstructive CAD per cardiac cath 12/27/2021 Continue aspirin, rosuvastatin (6) Congestive heart failure: Chronic HFpEF Echo 10/02/2023: EF:55-60%, normal diastolic dysfunction, mild MR, mild aortic insufficiency, mild TR Hold Lasix and reassess volume status tomorrow (7) PTSD (post-traumatic stress disorder): Continue amitriptyline (8) Migraines: Continue topiramate DVT Prophylaxis SCDs Disposition per primary service Follows with [facility] for routine care Pt was seen and care coordinated with Dr Zhou. See addendum Thank you for this consultation. We will follow the patient with you during their hospital stay. You can reach a member of the [facility] Hospitalist Team 25/02 via [employer] History of Present Illness Requesting Physician: Dr Mayberry Reason for Consultation: Post op medical management Attending Physician: Frederick Mayberry, DO History of Present Illness Patient is 79-year-old male with PMH paroxysmal atrial fibrillation anticoagulated on Eliquis, mild nonobstructive CAD on cardiac cath 12/27/2021, HTN, HLD, migraine headache, vestibular neuronitis, PTSD seen in medical consultation s/p decompression and fusion L2-S1 today by Dr. Mayberry. Postop patient reports some low back pain. He reports chronic neuropathy of bilateral feet. Last BM 2 days ago. Has [place] catheter in place. Denies fever/chills, diaphoresis, N/V/D, MALCOLM, CP, SOB, abdominal pain, extremity edema, rashes, dysuria, hematuria. Allergies Allergy/AdvReac Type Severity Reaction Status Date / Time naproxen Allergy Unknown Rash Verified 11/06/24 10:39 sacubitril [From Entresto] Allergy Unknown syncope Verified 11/06/24 10:39 valsartan [From Entresto] Allergy Unknown syncope Verified 11/06/24 10:39 Home Medications Medication Instructions Recorded Confirmed Type Vitamin B-12 1 tab PO QAM 10/01/24 11/06/24 History amitriptyline 25 mg tablet 25 mg PO HS 10/01/24 11/06/24 History apixaban 5 mg tablet (Eliquis) 5 mg PO BID 10/01/24 11/06/24 History aspirin 81 mg capsule 81 mg PO HS 10/01/24 11/06/24 History baclofen 10 mg tablet 10 mg PO DAILY PRN Pain 10/01/24 11/06/24 History ergocalciferol (vitamin D2) 1,250 1,250 mcg PO WK 10/01/24 11/06/24 History mcg (50,000 unit) capsule (Vitamin D2) furosemide 20 mg tablet 20 mg PO QAM 10/01/24 11/06/24 History omeprazole 20 mg capsule,delayed 20 mg PO HS 10/01/24 11/06/24 History release oxycodone 10 mg tablet 10 mg PO BID PRN Pain 10/01/24 11/06/24 History rizatriptan 10 mg tablet (Maxalt) 0 mg PO .COMPLEX PRN prn 10/01/24 11/06/24 History tamsulosin 0.4 mg capsule 0.4 mg PO HS 10/01/24 11/06/24 History topiramate 50 mg tablet (Topamax) 50 mg PO BID 10/01/24 11/06/24 History rosuvastatin 40 mg tablet 40 mg PO DAILY 11/06/24 11/06/24 History Patient History Medical History Hypertension controlled, stable per pt Claustrophobia does better with mask just slightly above face Vasovagal syncope with IV placement/injections-states no issues with blood draw Vertigo chronic CAD (coronary artery disease) mild non-obstructive Congestive heart failure EF 55-60% Arthritis Dyslipidemia History of COVID-19 (~04/2024) symptoms resolved PTSD (post-traumatic stress disorder) needs space/gently woken up from surgery Peripheral neuropathy feet Migraines Atrial fibrillation on Eliquis daily-s/p ablation 2022- [facility] [place]- Shahriar Ramirez Surgical History History of shoulder surgery right 08/11/24- rotator cuff repair, [place] [facility] Hx of cardiac catheterization (~2021) no stents [facility] History of cardiac radiofrequency ablation (~2022) Hx of total knee replacement right Hx of colonoscopy Hx of cholecystectomy Social History Smoking Status: Never smoker Second Hand Exposure: No; Do You Dip or Chew Tobacco: No; Tobacco Cessation Education Requested by Patient: No Hx Alcohol Use: Yes Hx Substance Use: No Preferred Language: Armenian Communication Ability: Effective Jockey Agent Required: No Beliefs That Will Affect Care: None Current Living Situation: Spouse Other Information That Helps Us Care for You: No Feels Safe at Home: Yes Safety Concerns: Feels Safe At This Time Assistive Devices: Denture - Upper, Glasses and Hearing Aid - Bilateral Assistive Devices Comment: UPPER PARTIAL Review of Systems Review of Systems: All systems reviewed & are unremarkable except as noted in HPI & below Physical Exam Physical Exam: General: no distress, WDWN Head: normocephalic, atraumatic Eyes:conjunctiva non-injected, anicteric ENT: normal inspection external ears, nose, mucous membranes moist Neck: supple, trachea midline Lungs: clear, no respiratory distress, no wheezing/rhonchi/rales CV: RRR, no murmur, no pretibial edema Abd: normal BS, soft, non-tender Back: surgical dressing in place, +BRIANNA drain with serosanguineous drainage Ext: no cyanosis, no calf tenderness; bilateral pedal pushes and pulls intact Neuro: A&O x 3, no focal deficits noted, normal affect Skin: warm, dry Results & Data Vital Signs (Past 12 Hours) Vital Signs Temp Pulse Pulse Resp BP BP Pulse Ox 11/06/24 18:19 36.5 C 87 18 114/79 97 11/06/24 17:59 82 16 101/72 95 11/06/24 17:31 36.5 C 96 H 16 138/75 97 11/06/24 17:20 11/06/24 16:55 87 14 125/67 96 11/06/24 16:45 36.4 C L 79 15 132/79 94 11/06/24 16:35 78 15 119/69 94 11/06/24 16:25 77 15 103/73 94 11/06/24 16:15 73 17 133/74 96 11/06/24 16:05 76 17 124/68 95 11/06/24 15:55 36.4 C L 77 17 106/71 97 11/06/24 10:44 36.9 C 82 20 162/91 H 97 O2 Del Method O2 Flow Rate 11/06/24 18:19 Nasal Cannula 2 11/06/24 17:59 Nasal Cannula 2 11/06/24 17:31 Nasal Cannula 2 11/06/24 17:20 Nasal Cannula 2 11/06/24 16:55 Nasal Cannula 4 11/06/24 16:45 Nasal Cannula 4 11/06/24 16:35 Nasal Cannula 4 11/06/24 16:25 Nasal Cannula 4 11/06/24 16:15 Nasal Cannula 4 11/06/24 16:05 Nasal Cannula 4 11/06/24 15:55 Nasal Cannula 4 11/06/24 10:44 Room Air
[2024-11-06] MEDS: HYDROmorphone INJ 1 MG/ML SYRINGE IV PRN (20:26)
[2024-11-06] MEDS: AMITRIPTYLINE HCL 25 MG TAB PO SCH (20:27)
[2024-11-06] MEDS: ASPIRIN 81 MG ECTAB PO SCH (20:29)
[2024-11-06] MEDS: DOCUSATE SODIUM/SENNA 50/8.6MG TAB PO SCH (20:29)
[2024-11-06] MEDS: PANTOprazole 40 MG TAB PO SCH (20:30)
[2024-11-06] MEDS: TOPIRAMATE 50 MG TAB PO SCH (20:30)
[2024-11-06] MEDS: TAMSULOSIN HCL 0.4 MG CAP PO SCH (20:30)
[2024-11-06] MEDS: oxyCODONE HCL IR 5 MG TAB (IMMEDIATE RELEASE) PO PRN (22:41)
[2024-11-07] MEDS: traMADol HCL 50 MG TABLET PO PRN (02:51)
[2024-11-07] MEDS: POLYETHYLENE (MIRALAX) 17 GM PACK PO SCH (05:41)
[2024-11-07 07:30] LABS: BUN Creatinine Ratio 12.6 (10-20); Calcium 8.5 mg/dl (8.6-10.3); Creatinine Clr Calc Pharmacy 64.5 ml/min; Potassium 4.6 mmol/L (3.5-5.1)
[2024-11-07 07:35] LABS: Basophils # (auto) 0.05 K/uL (0.00-0.20); Basophils % (auto) 0.4 %; Eosinophils # (auto) 0.02 K/uL (0.00-0.50); Eosinophils % (auto) 0.2 %; Hematocrit (blood only) 39.7 % (42.0-52.0); Hemoglobin 12.5 g/dl (14.0-18.0); Immature Granulocytes # (auto) 0.07 K/uL (0.01-0.20); Immature Granulocytes % (auto) 0.6 %; Lymphocytes # (auto) 1.84 K/uL (1.20-3.40); Lymphocytes % (auto) 14.5 %; Mean Corpuscular Hemoglobin 29.2 pg (25.0-34.0); Mean Corpuscular Hgb Conc 31.5 g/dL (32.0-36.0); Mean Corpuscular Volume 92.8 fL (80.0-100.0); Mean Platelet Volume 10.2 fL (9.4-12.4); Monocytes # (auto) 1.04 K/uL (0.11-0.59); Monocytes % (auto) 8.2 %; Neutrophils # (auto) 9.65 K/uL (1.40-6.50); Neutrophils % (auto) 76.1 %; Platelet Count 230 K/uL (130-400); RDW Coefficient of Variation 13.2 % (11.5-14.5); RDW Standard Deviation 45.1 fL (36.4-46.3); Red Blood Count 4.28 M/uL (4.70-6.10); White Blood Count 12.67 K/ul (4.8-10.8)
[2024-11-07] MEDS: dexAMETHasone 6 MG in SYRINGE 0 ML IV SCH (08:41)
[2024-11-07] MEDS: ROSUVASTATIN CALCIUM 20 MG TAB PO SCH (08:41)
[2024-11-07] MEDS: CYANOCOBALAMIN (B-12) 500 MCG TABLET PO SCH (08:42)
--- NOTE | 2024-11-07 08:42 | Orthopedic Progress Note ---
Date of Service November 07, 2024 Assessment & Plan (1) Multilevel lumbosacral spondylosis with radiculopathy: Plan: Layo is postoperative day 1 status post L2-S1 decompression and fusion. He will start physical therapy today. Maintain BRIANNA drain. DVT prophylaxis is in the form teds and SCDs. Continue with aggressive bowel regimen. We will hold his Eliquis for a minimum of 72 hours postoperatively. Admission and Anticipated Discharge Date Admission Date: November 06, 2024 Subjective Layo is postoperative day 1 status post L2-S1 decompression and fusion. Pain is controlled. He states he feels a little groggy still from anesthesia. He is appropriate though. BRIANNA drain output for the past 4 hours is 130 cc. H&H are 12.5 and 39.7 respectively. Eliquis is on hold. No other complaints. Review of Systems Review of Systems: All systems reviewed & are unremarkable except as noted in HPI & below Physical Exam Physical Exam: He is sitting up in a chair eating breakfast in no acute distress Alert and oriented x 3, appropriate No evidence of lethargy Strength is intact bilateral lower extremities Calf soft nontender bilaterally There is some bloody drainage on his bandage. It is being reinforced Results & Data Vital Signs (Past 12 Hours) Vital Signs Temp Pulse Resp BP BP Pulse Ox O2 Del Method 11/07/24 07:51 95 H 18 109/58 L 95 Room Air 11/07/24 03:07 36.5 C 71 18 148/92 H 96 Room Air 11/07/24 00:00 36.8 C 86 18 138/91 96 Room Air
[2024-11-07] MEDS ORDERED: ROSUVASTATIN CALCIUM 20 MG TAB PO SCH (09:00)
[2024-11-07] MEDS ORDERED: FUROSEMIDE 20 MG TAB PO SCH (09:00)
--- NOTE | 2024-11-07 13:31 | Hospitalist Progress Note ---
Date of Service November 07, 2024 Assessment & Plan (1) Status post lumbar surgery: (2) Multilevel lumbosacral spondylosis with radiculopathy: (3) PAF (paroxysmal atrial fibrillation): (4) Dyslipidemia: (5) CAD (coronary artery disease): (6) Congestive heart failure: (7) PTSD (post-traumatic stress disorder): (8) Migraines: Plan Patient status post lumbar surgery. Pain control as per attending Reviewed attending notes, continue to hold anticoagulation for 72 hours postop Continue to monitor vital signs. Continue other home medications as prescribed Admission and Anticipated Discharge Date Admission Date: November 06, 2024 Subjective Patient sitting up in chair this morning. States that had to try most of the options for pain control through the night but seem to get some relief from the Dilaudid. No chest pain, no shortness of breath, no palpitations Physical Exam Physical Exam: Constitutional: Alert HEENT: Mucous membranes moist. Lungs: Clear to auscultation, decreased, no wheezes rales or rhonchi CV: S1-S2, regular Abdomen: Soft, nontender, nondistended Extremities: No significant edema Musculoskeletal: Lumbar surgical dressing dry, BRIANNA drain with serosanguineous fluid Neuro: No focal deficits Psych: Cooperative, normal mood Results & Data Results & Data Vital Signs (Past 12 Hours) Vital Signs Temp Pulse Resp BP BP Pulse Ox O2 Del Method 11/07/24 07:51 95 H 18 109/58 L 95 Room Air 11/07/24 03:07 36.5 C 71 18 148/92 H 96 Room Air Diagnostic Findings Reviewed imaging, laboratory and diagnostic studies. Pertinent findings as below. Hemoglobin 12.5 WBCs 12.6 Electrolytes stable Creatinine 1.19
[2024-11-07] MEDS: PHENAZOPYRIDINE HCL 200 MG TAB PO PRN (18:11)
--- NOTE | 2024-11-08 08:19 | Orthopedic Progress Note ---
Date of Service November 08, 2024 Assessment & Plan (1) Multilevel lumbosacral spondylosis with radiculopathy: Plan: Layo is postoperative day 2 status post L2-S1 decompression and fusion from L2- S1. Will continue with physical therapy today. Continue with pain control. Work on aggressive bowel regimen. DVT prophylaxis is in the form of teds and SCDs. Anticipate discharge home within the next day or 2. Admission and Anticipated Discharge Date Admission Date: November 06, 2024 Subjective Layo is postoperative day 2 status post L2-S1 decompression and fusion. He has had an uneventful day yesterday. Complains of back pain only. Leg symptoms improved compared to preoperative status. He is passing flatus but no bowel movement. BRIANNA drain output last shift was 75 cc. Yesterday in physical therapy ambulating roughly 50 feet. He plans to return home upon discharge. No other complaints Review of Systems Review of Systems: All systems reviewed & are unremarkable except as noted in HPI & below Physical Exam 2 Physical Exam: He sitting up in bed eating breakfast in no acute distress Alert and oriented x 3 Dressing is intact with BRIANNA drain functioning Strength intact bilateral lower extremities Results & Data Vital Signs (Past 12 Hours) Vital Signs Temp Pulse Pulse Resp BP BP Pulse Ox 11/08/24 07:00 37.0 C 91 H 16 122/67 91 11/07/24 20:35 36.4 C L 73 16 134/83 94 11/07/24 20:23 O2 Del Method 11/08/24 07:00 Room Air 11/07/24 20:35 Room Air 11/07/24 20:23 Room Air
--- NOTE | 2024-11-08 12:12 | Hospitalist Progress Note ---
Date of Service November 08, 2024 Assessment & Plan (1) Status post lumbar surgery: (2) Multilevel lumbosacral spondylosis with radiculopathy: (3) PAF (paroxysmal atrial fibrillation): (4) Dyslipidemia: (5) CAD (coronary artery disease): (6) Congestive heart failure: (7) PTSD (post-traumatic stress disorder): (8) Migraines: Plan Continue postoperative care as directed by attending Continue oral medications/outpatient medications as prescribed Restart anticoagulation when recommended by attending post surgery Continue to monitor for volume overload. Admission and Anticipated Discharge Date Admission Date: November 06, 2024 Subjective Patient states still struggling to control his pain and requiring IV medications. However, no chest pain, palpitations or shortness of breath. Physical Exam Physical Exam: Constitutional: Alert, nontoxic HEENT: Mucous membranes moist. Lungs: Clear to auscultation, decreased, no wheezes rales or rhonchi CV: S1-S2, regular Abdomen: Soft, nontender, nondistended Extremities: No significant edema Neuro: No focal deficits Psych: Cooperative, normal mood Results & Data Results & Data Vital Signs (Past 12 Hours) Vital Signs Temp Pulse Resp BP Pulse Ox O2 Del Method 11/08/24 07:00 37.0 C 91 H 16 122/67 91 Room Air
[2024-11-08] MEDS: MAGNESIUM HYDROXIDE SUSP 30 ML UDC PO PRN (15:54)
--- NOTE | 2024-11-09 08:20 | Hospitalist Progress Note ---
<Statement entered by Jack Clifton DO - 11/09/24 13:55> I have seen and examined the patient and have discussed the case with the advance practice provider. I have reviewed the advanced practitioner's documentation, and I agree with, and take responsibility for that plan of care. Patient states having some abdominal discomfort, only a small stool today. Abdomen: Slightly distended, diffusely tender but no guarding or rigidity Suspect postoperative ileus, mild. Encouraged ambulation, trial of Reglan scheduled to stimulate gastric peristalsis. Bowel medications as ordered. Further plan of care as outlined below I spent a total of 14 minutes coordinating, documenting, and providing care for this patient excluding time spent by another provider/QHP. Date of Service November 09, 2024 Assessment & Plan (1) Multilevel lumbosacral spondylosis with radiculopathy: (2) Status post lumbar surgery: Plan: Layo Plaza is a 79y/o M with PMHx significant for PAF anticoagulated on Eliquis, mild nonobstructive CAD noted on cardiac catheterization in December 2021, chronic HFpEF, HTN, HLD, migraines, chronic back pain, GERD, vestibular neuronitis and PTSD who is being seen in consultation for routine postoperative medical management after undergoing elective L2-S1 decompression and fusion performed by Dr. Mayberry on 11/06/2024. Per ortho for pain control, wound care, anticoagulation and activities. Continue incentive spirometry, PT/OT when appropriate as per ortho team. (3) PAF (paroxysmal atrial fibrillation): Plan: S/p prior ablation. Remain rate-controlled; resume Eliquis as directed by primary service. Other Chronic Medical Conditions: PTSD - Continue amitriptyline. Migraines - Continue topiramate. CAD/HLD - Continue ASA and statin. GERD - Continue PPI. BPH - Continue Flomax. Chronic HFpEF - Appears euvolemic on exam. Continue to hold Lasix while inpatient but can resume on discharge. * TTE from September 2023 with LVEF = 55-60%, normal diastolic function, mild MR, mild aortic insufficiency and mild TR. DVT Prophylaxis: Resume Eliquis as directed by primary service. Code Status: FULL CODE PCP: Shahriar Renner PA-C [[facility]] Disposition: Discharge planning as per primary service - anticipate possible discharge home tomorrow. Patient seen in collaboration with Dr. Clifton. Please see addendum. I spent a total of 35 minutes coordinating, documenting, and providing care for this patient excluding time spent in the performance of separately billed services or time spent by another provider/QHP. This included personally reviewing all current laboratories and imaging studies, medical reconciliation, outpatient chart review and discussion with specialists. This chart was completed in part utilizing Speech Voice Recognition Software. Grammatical errors, random word insertions, pronoun errors, and incomplete sentences are an occasional consequence of this system due to software limitations, ambient noise, and hardware issues. Any formal questions or concerns about the content, text, or information contained within the body of this dictation should be directly addressed to the provider for clarification. Admission and Anticipated Discharge Date Admission Date: November 06, 2024 Subjective Patient seen and examined in room N377-2. NAEO. Ambulating in the room with a walker when I entered the room. States he had a BM this morning which was loose in nature. Still feels bloated and lacks much of an appetite but endorses adequate pain control with PRN pain regimen. Denies any N/V, SOB or chest pain. BRIANNA drain x 1 intact with serosanguineous output. Surgical dressings C/D/I. Going to work with PT this morning. Encouraged him to get up and moving as much as possible to stimulate his bowels. Review of Systems Review of Systems: At least ten systems reviewed and negative, except as noted in the subjective section. Physical Exam Physical Exam: General: WD/WN. NAD, sitting up in bed. Conversing appropriately. A+Ox3, cooperative. PT at bedside. HEENT: Normocephalic, atraumatic. Conjunctivae normal. External ear/nose normal, moist mucous membranes. Respiratory: Normal respiratory effort, lungs clear to auscultation bilaterally. No accessory muscle use. Cardiovascular: Regular rate and rhythm, normal peripheral pulses. No BLE edema. Abdomen/GI: Normal bowel sounds, soft. + mildly distended but nontender to palpation in all quadrants. Extremities/MSK: Surgical dressing C/D/I. BRIANNA drain x 1 intact with serosanguineous output. Actively moves all extremities. Neurologic: No overt focal deficits, CN's II-XI not formally tested but appear grossly intact bilaterally. BLE tactile sensation intact. Results & Data Results & Data Vital Signs (Past 12 Hours) Vital Signs Temp Pulse Resp BP Pulse Ox O2 Del Method 11/09/24 07:36 36.9 C 80 16 147/71 H 95 Room Air
[2024-11-09] MEDS: ACETAMINOPHEN 500 MG TAB PO PRN (09:48)
--- NOTE | 2024-11-09 11:01 | Orthopedic Progress Note ---
Date of Service November 09, 2024 Assessment & Plan (1) Multilevel lumbosacral spondylosis with radiculopathy: Plan: At this time we will continue to advance his bowel regiment monitor his BRIANNA output and possible discharge home tomorrow. Admission and Anticipated Discharge Date Admission Date: November 06, 2024 Subjective Patient's pain is controlled. He had a small bowel movement this morning which has helped his discomfort. He is tolerating physical therapy. Physical Exam Physical Exam: Patient is currently in bed. He is constricted testing. Abdomen is soft. Results & Data Vital Signs (Past 12 Hours) Vital Signs Temp Pulse Resp BP Pulse Ox O2 Del Method 11/09/24 07:36 36.9 C 80 16 147/71 H 95 Room Air
[2024-11-09] MEDS: METOCLOPRAMIDE HCL INJ 5 MG/ML 2 ML VIAL IV SCH (11:53)
[2024-11-10 06:16] LABS: Hematocrit (blood only) 30.6 % (42.0-52.0); Hemoglobin 10.3 g/dl (14.0-18.0); Mean Corpuscular Hemoglobin 29.9 pg (25.0-34.0); Mean Corpuscular Hgb Conc 33.7 g/dL (32.0-36.0); Mean Platelet Volume 10.3 fL (9.4-12.4); Platelet Count 207 K/uL (130-400); RDW Coefficient of Variation 12.9 % (11.5-14.5); RDW Standard Deviation 41.9 fL (36.4-46.3); Red Blood Count 3.44 M/uL (4.70-6.10); White Blood Count 9.14 K/ul (4.8-10.8)
[2024-11-10 06:25] LABS: BUN Creatinine Ratio 18.2 (10-20); Calcium 8.6 mg/dl (8.6-10.3); Creatinine Clr Calc Pharmacy 87.2 ml/min; Magnesium 2.1 mg/dl (1.7-2.4); Potassium 3.5 mmol/L (3.5-5.1)
[2024-11-10 07:17] VITALS: BP 127/78; PULSE 71; RESP 12; TEMP 97.9; O2SAT 96
--- NOTE | 2024-11-10 07:46 | Hospitalist Progress Note ---
<Statement entered by Jack Clifton DO - 11/10/24 13:17> I have seen and examined the patient and have discussed the case with the advance practice provider. I have reviewed the advanced practitioner's documentation, and I agree with, and take responsibility for that plan of care. Patient reports he had several bowel movements. Still feels a little bit bloated. Eager to get home. Medically able to be discharged home. Plan of care as outlined below I spent a total of 10 minutes coordinating, documenting, and providing care for this patient excluding time spent by another provider/QHP. Date of Service November 10, 2024 Assessment & Plan (1) Multilevel lumbosacral spondylosis with radiculopathy: (2) Status post lumbar surgery: Plan: Layo Plaza is a 79y/o M with PMHx significant for PAF anticoagulated on Eliquis, mild nonobstructive CAD noted on cardiac catheterization in December 2021, chronic HFpEF, HTN, HLD, migraines, chronic back pain, GERD, vestibular neuronitis and PTSD who is being seen in consultation for routine postoperative medical management after undergoing elective L2-S1 decompression and fusion performed by Dr. Mayberry on 11/06/2024. Per ortho for pain control, wound care, anticoagulation and activities. Continue incentive spirometry, PT/OT when appropriate as per ortho team. (3) Acute blood loss anemia: Plan: Preop Hgb 15, Hgb now downtrended to 10.3 today ISO expected surgical loss (EBL = 500cc). No indication to transfuse at this time. Continue to monitor repeat H/H with daily AM labs while admitted. (4) PAF (paroxysmal atrial fibrillation): Plan: S/p prior ablation. Remain rate-controlled; resume Eliquis as directed by primary service. Other Chronic Medical Conditions: PTSD - Continue amitriptyline. Migraines - Continue topiramate. CAD/HLD - Continue ASA and statin. GERD - Continue PPI. BPH - Continue Flomax. Chronic HFpEF - Appears euvolemic on exam. Continue to hold Lasix while inpatient but can resume on discharge. * TTE from September 2023 with LVEF = 55-60%, normal diastolic function, mild MR, mild aortic insufficiency and mild TR. DVT Prophylaxis: Resume Eliquis as directed by primary service. Code Status: FULL CODE PCP: Shahriar Renner PA-C [[facility]] Disposition: Discharge planning as per primary service - patient is stable for discharge from medicine perspective. We will follow the patient with you during their hospital stay. You can reach a member of the [facility] Hospitalist Team 25/02 via [employer]. Patient seen in collaboration with Dr. Clifton. Please see addendum. I spent a total of 25 minutes coordinating, documenting, and providing care for this patient excluding time spent in the performance of separately billed services or time spent by another provider/QHP. This included personally reviewing all current laboratories and imaging studies, medical reconciliation, outpatient chart review and discussion with specialists. This chart was completed in part utilizing Speech Voice Recognition Software. Grammatical errors, random word insertions, pronoun errors, and incomplete sentences are an occasional consequence of this system due to software limitations, ambient noise, and hardware issues. Any formal questions or con cerns about the content, text, or information contained within the body of this dictation should be directly addressed to the provider for clarification. Admission and Anticipated Discharge Date Admission Date: November 06, 2024 Subjective Patient seen and examined in room N377-2. NAEO. Endorses feeling well this morning. He has been up and walking around this morning. Reports good pain control. Has had a few bowel movements overnight with quite a bit of relief in his abdominal discomfort and distention. Review of Systems Review of Systems: At least ten systems reviewed and negative, except as noted in the subjective section. Physical Exam Physical Exam: General: WD/WN. NAD, sitting up in bed. Conversing appropriately. Pleasant. A+Ox3, cooperative. HEENT: Normocephalic, atraumatic. Conjunctivae normal. External ear/nose normal, moist mucous membranes. Respiratory: Normal respiratory effort, lungs clear to auscultation bilaterally. No accessory muscle use. Cardiovascular: Regular rate and rhythm, normal peripheral pulses. No BLE edema. Abdomen/GI: Normal bowel sounds, soft. + distention improved. Nontender to palpation in all quadrants. Extremities/MSK: Surgical dressing C/D/I. BRIANNA drain x 1 intact with serosanguineous output. Actively moves all extremities. Neurologic: No overt focal deficits, CN's II-XI not formally tested but appear grossly intact bilaterally. BLE tactile sensation intact. Results & Data Results & Data Vital Signs (Past 12 Hours) Vital Signs Temp Pulse Resp BP Pulse Ox O2 Del Method 11/10/24 07:16 36.6 C 71 12 127/78 96 Room Air Laboratory Results Short CBC 11/10/24 Range/Units 05:29 WBC 9.14 (4.8-10.8) K/ul Hgb 10.3 L (14.0-18.0) g/dl Hct 30.6 L (42.0-52.0) % Plt Count 207 (130-400) K/uL BMP 11/10/24 05:29 Sodium 136 Potassium 3.5 Chloride 103 Carbon Dioxide 26 BUN 16 Creatinine 0.88 Glucose 104 H Calcium 8.6
--- NOTE | 2024-11-10 08:11 | Discharge Summary ---
Date of Service November 10, 2024 Admission HPI Per Admitting Provider This is a 79-year-old male who presents with chronic persistent back and leg pain after failing course of nonoperative care is here for surgical intervention. Principal Diagnosis Lumbar spondylosis with radiculopathy Discharge Data Allergies Allergy/AdvReac Type Severity Reaction Status Date / Time naproxen Allergy Unknown Rash Verified 11/06/24 10:39 sacubitril [From Entresto] Allergy Unknown syncope Verified 11/06/24 10:39 valsartan [From Entresto] Allergy Unknown syncope Verified 11/06/24 10:39 Consultations 11/06/24 17:22 Consult Hospitalist Routine Procedures Performed Operation Date: 11/06/24 11:55 Actual Procedures p L2-S1 Decompression and Fusion, Spinal Cord Monitoring(Not Applicable) - Frederick Mayberry DO Ordered Studies 11/06/24 [place] lumbar spine 2-3V Routine Hospital Course (1) Multilevel lumbosacral spondylosis with radiculopathy: Patient underwent multilevel lumbar decompression fusion tolerates well was taken orthopedic for postoperative. Postop he progressed appropriately i mprovement of his back and leg symptoms. Excellent strength testing. BRIANNA drain decreasing. Pain controlled. Subsidy discharged home. Discharge orders and instructions found in chart for further review. Total Time Total Time Spent Total Time Spent (In Minutes): 20 minutes Discharge Plan Discharge Items Patient Disposition: Home - Self-Care Reason For Visit: Lumbar Radiculopathy, Degenerative Lumbar Spinal S Discharge Diagnosis: Lumbar spondylosis with radiculopathy Activity: As commented below Non-emergency contact: Primary Care Provider Call non-emergency contact if: you have any medication questions Follow-up/Referrals: [facility]ospital [Non-Staff] - Diet: Regular Addtl Attending Provider Instructions: ACTIVITY RECOMMENDATIONS: SELF CARE INSTRUCTIONS AFTER THORACIC/LUMBAR FUSIONS 1. You may walk to your tolerance. It is good exercise for your legs and back. Expect some back and intermittent leg aches and pains. 2. You may perform "counter-top" level activities (make a sandwich, neetu with a project, etc.). 3. No bending or lifting of more than 10 pounds or back twisting of any nature (roll like a log when turning in bed). 4. You may ride in a car for 20-30 minutes at a time. No driving until after your first visit with your doctor. 5. Frequent changes of position and restricting sitting to 30 minutes at a time will help limit the amount of back spasms and stiffness you may experience. 6. You may discontinue the use of ambulatory aids (cane, crutches, etc.) once your strength and confidence allow. 7. You may sheet rock finisher the shower and let water strike your incision when you arrive home at least once daily. Do not take a tub bath, sit in a hot tub or go into a swimming pool until after your first recheck in the office. 8. You may resume previous diet. SPECIAL CARE INSTRUCTIONS: VERY IMPORTANT TO READ AND REVIEW A. Your surgical incision has been closed with a cosmetic suture under the skin that will dissolve in about 6 weeks. In 14 days, you can use a pair of clean scissors and cut the suture that is left outside of the skin at the ends of your incision. 1. The small skin tapes can be removed 7 days after surgery if they have not fallen off by that point. 2. You may keep the wound open to air as much as possible to promote healing after post-op day number 5 unless told otherwise by your doctor. 3. If you think the wound looks like it is becoming infected (redness or worsening drainage) and/or you are experiencing fever, chill or worsening back pain and muscle spasms, contact the office so that we may alvaro luate you as soon as possible. B. Complications are uncommon, but please contact us if you have any signs or symptoms of: 1. wound infection (fever higher than 102.5 degrees F, redness, separation of wound, drainage, or increasing pain from the incision) 2. blood clots in legs (pain, swelling, redness and warmth in legs) 3. urinary tract infection (fever higher than 102.5 degrees F, burning upon urination or increased frequency of urination) 4. nerve problems (inability to walk on your toes or heels, numbness, loss of bowel or bladder control) 5. any other symptoms that concern you C. Please call the office at if you have any concerns or questions about your operation or recovery. D. No smoking! Smoking drastically decreases the chance of a solid fusion. E. Do not take any anti-inflammatory medications (Indocin, Advil, Motrin, As pirin, Naprosyn, etc.) as these may inhibit the chance of a solid fusion. Tylenol is okay to take for pain. MANAGING PAIN AFTER SPINAL SURGERY 1. Narcotic medication is intended for short-term use and will be provided for surgical pain. Surgical pain usually lasts for a period of 4-6 weeks. Narcotic medication includes Percocet, Vicodin, Darvocet, Tylenol #3 or Lortab. 2. Longer-term pain is more appropriately treated with non-narcotic medication such as Tylenol ES. 3. Muscle spasm is not appropriately treated with narcotics. Muscle relaxers such as Soma, Flexeril or Skelaxin can be used along with Tylenol ES. 4. Remember that we all live with some "aches and pains". This is not unusual or uncommon after an injury or as we get older. a. Back pain is expected and may include muscle spasms for 4 to 6 weeks after surgery. The pain should gradually improve. If the pain worsens for no apparent reason, please contact the office. b. Intermittent leg pain may also be experienced and should not be concerned about unless it worsens for no apparent reason. If so, please contact the office. 5. We will provide appropriate medication within the normal guidelines of their prescribed use. We will also be very cautious and aware of potential abuse and extended duration of patients' medication needs. a. Pain medications are for your comfort and to assist with sleep and rest so that the tissue can heal. They are not provided in order to return to normal activity and should not be used through the day. To do so or worsening pain at night can result from ongoing tissue damage and development of tolerance to the prescribed medicine. 6. Please allow 2-3 days to process refills. Prescriptions will not be mailed but must be picked up at the office. FOLLOW UP VISIT: Keep your scheduled follow-up appointment. Any questions, please call the office at . Pending Studies at Discharge: No Stand-Alone Forms: My Activity [employer], Smoking Cessation Medications and [place] Order Prescriptions: New tramadol 50 mg tablet 50 mg PO Q6H PRN (Reason: pain, moderate) Qty: 30 0RF oxycodone 5 mg tablet 5 mg PO Q6H PRN (Reason: pain) Qty: 30 0RF Continued rizatriptan [Maxalt] 10 mg Tablet 0 mg PO .COMPLEX PRN (Reason: prn) Rx Instructions: take 1 tab at onset of headache; if no relief may repeat 1 tab after at least 2 hrs; max = 3 tabs/24 hr amitriptyline 25 mg Tablet 25 mg PO HS tamsulosin 0.4 mg Capsule 0.4 mg PO HS baclofen 10 mg Tablet 10 mg PO DAILY PRN (Reason: Pain) omeprazole 20 mg Capsule,Delayed Release(Dr/Ec) 20 mg PO HS furosemide 20 mg Tablet 20 mg PO QAM ergocalciferol (vitamin D2) [Vitamin D2] 1,250 mcg (50,000 unit) Capsule 1,250 mcg PO WK topiramate [Topamax] 50 mg Tablet 50 mg PO BID oxycodone 10 mg Tablet 10 mg PO BID PRN (Reason: Pain) aspirin 81 mg Capsule 81 mg PO HS Vitamin B-12 1 tab PO QAM Eliquis 5 mg Tablet 5 mg PO BID rosuvastatin 40 mg tablet 40 mg PO DAILY Discharge Orders: Discharge Order (Routine); Ordered 11/10/24 Ordered By: Frederick Mayberry Admission Data Admit Date/Time: 11/06/24 15:34 Attending Provider: Frederick Mayberry Admit Provider: Frederick Mayberry Primary Care Provider: PCP,NO Other Providers: Cindy Hall; Jack Clifton
[2024-11-10] MEDS: ERGOCALCIFEROL 1250 MCG (50,000 UNITS) CAP PO SCH (08:27)
== END 2024-11-10 12:45 | disposition home or self-care (01) | DRG 427 ==
LOC: ASU 10:34 → 3N 15:34